=== PATIENT | male | born 1980 | race African-American/Black ===

== ENCOUNTER 2018-01-03 05:15 | Emergency (ER) | payer OTHER | END 2018-01-03 08:22 | disposition other institution (70) | LOC: ED 05:15 | DX: Z02.89 Encounter for other administrative examinations (principal) ==

== ENCOUNTER 2018-01-03 05:15 | Emergency (ER) | payer OTHER ==
[~2018-01-03] VITALS: Ht 165.1 cm; Wt 68.0 kg
[2018-01-03 05:25] VITALS: Ht 165.1 cm; Wt 68.0 kg
[2018-01-03 07:36] VITALS: BP 149/97
== END 2018-01-03 08:22 | disposition other institution (70) ==
LOC: ED 05:15
DX: S61.213A Laceration without foreign body of left middle finger without damage to nail, initial encounter (principal); Y04.0XXA Assault by unarmed brawl or fight, initial encounter; Y93.89 Activity, other specified; Y92.89 Other specified places as the place of occurrence of the external cause; Y99.8 Other external cause status
CPT/HCPCS: 90715; J2001; Q0092